=== PATIENT | female | born 2000 | race African-American/Black ===

== ENCOUNTER 2024-04-10 12:26 | Emergency (ER) | payer MEDICAID ==
[~2024-04-10] VITALS: Ht 162.6 cm; Wt 106.6 kg
[2024-04-10 12:33] VITALS: O2SAT 100
[2024-04-10] MEDS: ACETAMINOPHEN 325MG TABLET PO ONE (14:57)
[2024-04-10 15:13] LABS: HCG SCREEN NEGATIVE
[2024-04-10] MEDS: DIAZEPAM 5 MG TABLET PO ONE (15:26)
[2024-04-10] MEDS: KETOROLAC 30MG/ML VIAL IM ONE (15:27)
[2024-04-10] MEDS: LIDOCAINE 5% PATCH TOP SCH (16:58)
[2024-04-10] MEDS ORDERED: NAPR-1129 MT (17:20)
[2024-04-10] MEDS ORDERED: CYCL10TA21 MT (17:20)
[2024-04-10] MEDS ORDERED: LIDO700A15 TP (17:20)
[2024-04-10 17:47] VITALS: BP 138/94; PULSE 80; RESP 16; TEMP 36.83628; O2SAT 100
== END 2024-04-10 18:13 | disposition home or self-care (01) ==
LOC: ER 12:26
DX: M54.50 Low back pain, unspecified (principal); G89.11 Acute pain due to trauma
CPT/HCPCS: 99285; 72131; 84703; 96372; J1885